=== PATIENT | male | born 1950 | race Caucasian/White ===

== ENCOUNTER 2018-06-05 19:34 | Observation (INO) ==
[2018-06-05] MEDS ORDERED: Diphtheria/Tetanus/Pertussis Vaccine Inj 0.5 ML Syringe IM ONE (19:50)
--- NOTE | 2018-06-05 19:50 | ED ---
HPI General Chief complaint: Syncope Stated complaint: Cardiac Time Seen by Provider: 06/05/18 19:39 Source: patient Mode of arrival: EMS Limitations: no limitations History of Present Illness HPI narrative: 68-year-old male with history of hypertension, diabetes, brought in by ambulance after a syncopal episode. The patient was at dinner, when the next thing he remembers he was on the floor with paramedics surrounding him. He did strike his head and has a superficial abrasion to the superior scalp. Paramedics noted the patient to be significantly bradycardic and hypotensive as well as diaphoretic at the scene. They administered 0.5 mg of atropine with significant improvement in the patient's heart rate, blood pressure, and mental status. On arrival to the emergency department patient states he feels significantly improved and denies any complaints. No head or neck pain. No chest pain or dyspnea. He states he was in his usual state of health throughout the day today. No fevers or recent illness. He lives primarily in [place], however has been down here since May 01. He has no local primary care physicians. He denies any history of cardiopulmonary disease. No history of DVT or PE. He reports having 1 alcoholic beverage this evening. Denies illicit drug use or tobacco use. Related Data Home Medications Medication Instructions Recorded Confirmed Chloresterol Med 1 tab PO DAILY 06/05/18 glimepiride 4 mg PO QAM 06/05/18 06/05/18 lisinopril 5 mg PO DAILY 06/05/18 06/05/18 metformin 500 mg PO BID 06/05/18 06/05/18 repaglinide 1 mg PO DAILY 06/05/18 06/05/18 Allergies Allergy/AdvReac Type Severity Reaction Status Date / Time No Known Allergies Allergy Verified 06/05/18 19:46 Review of Systems ROS: all other systems reviewed are negative [facility] Medical History Medical History Diabetes (Acute) HTN (hypertension) (Acute) Hyperlipidemia (Acute) Social History Social History Substance History: No History of Abuse Second Hand Smoke Exposure: No Smoking Status: Never smoker How Often Do You Have a Drink Containing Alcohol: Never Recent Travel in [facility] within the Last 8 Weeks: Yes Recent Out of Country Travel within the Last 8 Weeks: No Exam Narrative Exam Narrative: GENERAL: Well-developed, well-nourished, awake, alert, comfortable, no apparent distress. SKIN: Focused skin assessment warm/dry. Superficial abrasion to the superior scalp without visible contaminants, no active bleeding. HEAD: Skin exam as above. Normocephalic. EYES: Pupils equal and round. No scleral icterus. No injection or drainage. ENT: Mucous membranes pink and moist. NECK: Trachea midline. No JVD. No midline vertebral step-off or tenderness. CARDIOVASCULAR: Regular rate and rhythm. Distal pulses brisk and equal bilaterally. RESPIRATORY: No accessory muscle use. Clear to auscultation. Breath sounds equal bilaterally. GASTROINTESTINAL: Abdomen soft, non-tender, nondistended. MUSCULOSKELETAL: No obvious deformities. No clubbing. No cyanosis. No edema. NEUROLOGICAL: Awake and alert. No obvious cranial nerve deficits. Motor grossly within normal limits. Normal speech. No focal deficits. PSYCHIATRIC: Appropriate mood and affect; insight and judgment normal. Course Initial Documented Vital Signs Temperature 98.4 F 06/05/18 19:40 Pulse Rate 72 06/05/18 19:40 Respiratory Rate 18 06/05/18 19:40 Blood Pressure 113/58 L 06/05/18 19:40 Pulse Oximetry 98 06/05/18 19:40 Last Documented Vital Signs Temperature 98.4 F 06/05/18 19:40 Pulse Rate 77 06/05/18 22:02 Respiratory Rate 21 06/05/18 22:02 Blood Pressure 123/68 06/05/18 22:02 Pulse Oximetry 100 06/05/18 22:02 Medical Decision Making [facility] Narrative Medical decision making narrative: Vital signs reviewed. 8:35 PM: I was called to the patient's bedside by the patient's nurse because the patient's blood pressure is 88/50. On my assessment the patient is awake and alert and states he feels fine. His heart rate is in the 70s. Chest x-ray shows no acute cardiopulmonary disease. He will be given a liter of normal saline bolus. CT head shows cortical atrophy, right maxillary sinus fluid, no acute injuries. CT cervical spine CONCLUSION: 1. Scattered degenerative changes. 2. No fracture or canal stenosis. CBC is remarkable for thrombocytopenia with a platelet count of 63. CMP is remarkable for random glucose of 174, otherwise unremarkable. Alcohol level is 21. Cardiac enzymes are negative. CT pulmonary angiogram: CONCLUSION:1. No pulmonary embolus.2. Thickening of the mid and distal esophagus. Thiscan be directly inspected if clinically needed. The patient and the patient significant other who is present in the room were made aware of all findings. His blood pressure improved and he is now normotensive with a blood pressure 123/68 after a liter of normal saline IV. Patient was made aware of thickening of the mid and distal esophagus seen on CT scan with recommendation for upper endoscopy as this could be cancerous. This can be done as an outpatient. Patient does have a slightly prolonged QT interval with a syncopal episode. When paramedics arrived he was significantly bradycardic and hypotensive. His heart rate improved after he was given atropine in the field. Because of this history the patient will be admitted for overnight observation/telemetry monitoring for syncope. He is amenable to this plan. Case discussed with hospitalist Dr. Winkler who will admit the patient to the hospitalist service. Medical Screen Exam Complete: Yes Emergency Medical Condition: Yes Differential Diagnosis Differential Diagnosis: Syncope, dysrhythmia, metabolic abnormality, intracranial trauma, cervical spine injury, PE Lab Data Result diagrams: 06/05/18 19:45 06/05/18 19:45 Lab Results 06/05/18 06/05/18 06/05/18 Range/Units 19:45 19:45 19:45 WBC 6.3 (4.0-11.0) th/mm3 RBC 3.96 L (4.50-5.90) mil/mm3 Hgb 13.4 (13.0-17.0) gm/dL Hct 38.6 L (39.0-51.0) % MCV 97.4 (80.0-100.0) fL MCH 33.7 (27.0-34.0) pg MCHC 34.6 (32.0-36.0) % RDW 13.8 (11.6-17.2) % Plt Count 63 L (150-450) th/mm3 MPV 9.8 (7.0-11.0) fL Prelim Diff (Auto) Slide review pending Neut % (Auto) 49.5 (16.0-70.0) % Lymph % (Auto) 35.3 (9.0-44.0) % Baker % (Auto) 10.5 H (0.0-8.0) % Eos % (Auto) 3.8 (0.0-4.0) % Baso % (Auto) 0.9 (0.0-2.0) % Neut # (Auto) 3.1 (1.8-7.7) th/mm3 Lymph # (Auto) 2.2 (1.0-4.8) th/mm3 Baker # (Auto) 0.7 (0.0-0.9) th/mm3 Eos # (Auto) 0.2 (0.0-0.4) th/mm3 Baso # (Auto) 0.1 (0.0-0.2) th/mm3 WBC Differential . Diff Scan Auto diff confirmed Differential Comment . Platelet Estimate Low L (Normal) Platelet Morphology Normal (Normal) RBC Morphology Normal (Normal) PT 13.3 H (9.8-11.6) sec INR 1.3 Ratio APTT 25.5 (23.4-31.7) sec Sodium 139 (136-145) meq/L Potassium 4.2 (3.5-5.1) meq/L Chloride 104 (98-107) meq/L Carbon Dioxide 23.8 (21.0-32.0) meq/L Anion Gap 11 (5-15) meq/L BUN 11 (7-18) mg/dL Creatinine 0.84 (0.60-1.30) mg/dL Estimated GFR Greater than 89 (>89) mL/min Random Glucose 174 H (74-106) mg/dL Calcium 8.3 L (8.5-10.1) mg/dL Total Bilirubin 0.8 (0.2-1.0) mg/dL AST 53 H (15-37) U/L ALT 47 (12-78) U/L Alkaline Phosphatase 111 (45-117) U/L Troponin I Less than 0.02 L (0.02-0.05) ng/mL Total Protein 6.7 (6.4-8.2) g/dL Albumin 3.1 L (3.4-5.0) g/dL Serum Alcohol 21 H (0-5) mg/dL Imaging Data Radiologist's impression: Cervical Spine CT 06/05/18 19:46 CONCLUSION: 1. Scattered degenerative changes. 2. No fracture or canal stenosis. Chest X-Ray 06/05/18 19:46 CONCLUSION: No acute cardiopulmonary process. Head CT 06/05/18 19:46 CONCLUSION: 1. Cortical atrophy. 2. Fluid in the right maxillary sinus. . . Chest CTA 06/05/18 20:49 CONCLUSION: 1. No pulmonary embolus. 2. Thickening of the mid and distal esophagus. This can be directly inspected if clinically needed. ECG Data Attestation: I personally reviewed and interpreted this ECG as follows: Discharge Plan Discharge Disposition Patient Disposition: ED Admit(ED Internal Use Only) Discharge Condition Condition: Stable Discharge Details Diagnosis: Syncope, Hypotension, Thrombocytopenia, Esophageal thickening Physicians Team ED Provider: Duane Nelson Primary Care Provider: UNKNOWN, Rxs /Orders / Referrals /Forms Prescriptions: No Action metformin 500 mg Tablet 500 mg PO BID RF: 0 glimepiride 4 mg Tablet 4 mg PO QAM RF: 0 lisinopril 5 mg Tablet 5 mg PO DAILY RF: 0 repaglinide 1 mg Tablet 1 mg PO DAILY RF: 0 Chloresterol Med 1 tab PO DAILY RF: 0 Status ED Status: With Doctor
[2018-06-05] MEDS ORDERED: Sod Chloride 0.9% Inj 1,000 ML IV.CONT SCH (20:00)
[2018-06-05 20:13] LABS: Baso # (Auto) 0.1 th/mm3 (0.0-0.2); Baso % (Auto) 0.9 % (0.0-2.0); Eos # (Auto) 0.2 th/mm3 (0.0-0.4); Eos % (Auto) 3.8 % (0.0-4.0); Hematocrit 38.6 % (39.0-51.0); Hemoglobin 13.4 gm/dL (13.0-17.0); Lymph # (Auto) 2.2 th/mm3 (1.0-4.8); Lymph % (Auto) 35.3 % (9.0-44.0); Mean Corpuscular HGB Conc 34.6 % (32.0-36.0); Mean Corpuscular Hemoglobin 33.7 pg (27.0-34.0); Mean Corpuscular Volume 97.4 fL (80.0-100.0); Mean Platelet Volume 9.8 fL (7.0-11.0); Mono # (Auto) 0.7 th/mm3 (0.0-0.9); Mono % (Auto) 10.5 % (0.0-8.0); Neut # (Auto) 3.1 th/mm3 (1.8-7.7); Neut % (Auto) 49.5 % (16.0-70.0); Platelet Count 63 th/mm3 (150-450); Red Blood Count 3.96 mil/mm3 (4.50-5.90); Red Cell Distribution Width 13.8 % (11.6-17.2); White Blood Count 6.3 th/mm3 (4.0-11.0)
[2018-06-05 20:20] LABS: Activated Partial Thrombo Time 25.5 sec (23.4-31.7); INR 1.3 Ratio; Prothrombin Time 13.3 sec (9.8-11.6)
--- NOTE | 2018-06-05 20:21 | CT ---
EXAM DATE: 06/05/2018 8:17 PM EST AGE/SEX: 68 years / Male INDICATIONS: Dizzy fell off a chair hit head on right side. CLINICAL DATA: This is the patient's initial encounter. Patient reports that signs and symptoms have been present for 1 day and indicates a pain score of 4/10. MEDICAL/SURGICAL HISTORY: Hypertension. Diabetes. None. RADIATION DOSE: 35.33 CTDI (mGy) COMPARISON: No prior exams available for comparison. TECHNIQUE: CT of the head without contrast. Using automated exposure control and adjustment of the mA and/or kV according to patient size, radiation dose was kept as low as reasonably achievable to ob tain optimal diagnostic quality images. DICOM format image data is available electronically for revi ew and comparison. FINDINGS: Cerebrum: The ventricles are normal for age. Cortical atrophy. No evidence of midline shift, mass le ford, hemorrhage or acute infarction. No extraaxial fluid collections are seen. Posterior Fossa: The cerebellum and brainstem are intact. The 4th ventricle is midline. The cerebe llopontine angle is unremarkable. Extracranial: The visualized portion of the orbits is intact. Fluid in the right maxillary sinus. Skull: The calvaria is intact. No evidence of skull fracture. CONCLUSION: 1. Cortical atrophy. 2. Fluid in the right maxillary sinus. . . Electronically signed by: Don Son MD Board Certified Radiologist 06/05/2018 8:19 PM EST
--- NOTE | 2018-06-05 20:24 | XR ---
EXAM DATE: 06/05/2018 8:20 PM EST AGE/SEX: 68 years / Male INDICATIONS: Chest pain and patient states he felt like he passed out tonight. CLINICAL DATA: This is the patient's initial encounter. Patient reports that signs and symptoms have been present for 1 day and indicates a pain score of 5/10. MEDICAL/SURGICAL HISTORY: None. None. COMPARISON: No prior exams available for comparison. FINDINGS: A single AP view of the chest demonstrates the lungs to be symmetrically aerated without evidence of mass, infiltrate or effusion. The cardiomediastinal contours are unremarkable. Osseous structures a re intact. CONCLUSION: No acute cardiopulmonary process. Electronically signed by: Cesar Neal MD Board Certified Radiologist 06/05/2018 8:23 PM EST
--- NOTE | 2018-06-05 20:29 | CT ---
EXAM DATE: 06/05/2018 8:23 PM EST AGE/SEX: 68 years / Male INDICATIONS: Dizzy fell off a chair hit right side of head. CLINICAL DATA: This is the patient's initial encounter. Patient reports that signs and symptoms have been present for 1 day and indicates a pain score of 4/10. MEDICAL/SURGICAL HISTORY: Hypertension. Diabetes. None. RADIATION DOSE: 20.35 CTDI (mGy) COMPARISON: No prior exams available for comparison. TECHNIQUE: Contiguous axial images were obtained using helical multirow detector technique. The vol umetric data was post-processed with multiplanar reconstruction in oblique axial, sagittal, and coron al planes. Using automated exposure control and adjustment of the mA and/or kV according to patient s ize, radiation dose was kept as low as reasonably achievable to obtain optimal diagnostic quality mich ges. DICOM format image data is available electronically for review and comparison. FINDINGS: Vertebrae: Normal vertebral body height. Scattered degenerative changes. Alignment: Normal. No subluxation. C2-3: The bony spinal canal is normal in size. No evidence of disc bulge or herniation. The neural foramina are bilaterally patent. C3-4: The bony spinal canal is normal in size. No evidence of disc bulge or herniation. The neural foramina are bilaterally patent. C4-5: The bony spinal canal is normal in size. No evidence of disc bulge or herniation. The neural foramina are bilaterally patent. C5-6: The bony spinal canal is normal in size. No evidence of disc bulge or herniation. The neural foramina are bilaterally patent. C6-7: The bony spinal canal is normal in size. No evidence of disc bulge or herniation. The neural foramina are bilaterally patent. C7-T1: The bony spinal canal is normal in size. No evidence of disc bulge or herniation. The neura l foramina are bilaterally patent. CONCLUSION: 1. Scattered degenerative changes. 2. No fracture or canal stenosis. Electronically signed by: Don Son MD Board Certified Radiologist 06/05/2018 8:28 PM EST
[2018-06-05 20:37] LABS: Albumin 3.1 g/dL (3.4-5.0); Anion Gap 11 meq/L (5-15); Aspartate Aminotransferase 53 U/L (15-37); Blood Urea Nitrogen 11 mg/dL (7-18); Calcium 8.3 mg/dL (8.5-10.1); Carbon Dioxide 23.8 meq/L (21.0-32.0); Chloride 104 meq/L (98-107); Glomerular Filtration Rate Greater Than 89 mL/min (>89); Glucose,Random 174 mg/dL (74-106); Potassium 4.2 meq/L (3.5-5.1); Sodium 139 meq/L (136-145)
[2018-06-05 20:42] LABS: Alanine Aminotransferase 47 U/L (12-78); Alkaline Phosphatase 111 U/L (45-117); Total Protein 6.7 g/dL (6.4-8.2)
[2018-06-05 20:44] LABS: Alcohol 21 mg/dL (0-5)
[2018-06-05 20:45] LABS: Platelet Morphology Normal (Normal); RBC Morphology Normal (Normal)
[2018-06-05] MEDS ORDERED: Sod Chloride 0.9% Inj 1,000 ML IV.SIG SCH (20:45)
--- NOTE | 2018-06-05 21:49 | CT ---
EXAM DATE: 06/05/2018 9:41 PM EST AGE/SEX: 68 years / Male INDICATIONS: Syncope. CLINICAL DATA: This is the patient's initial encounter. Patient reports that signs and symptoms have been present for 1 day and indicates a pain score of 0/10. MEDICAL/SURGICAL HISTORY: Hypertension. Diabetes. None. RADIATION DOSE: 10.03 CTDI (mGy) COMPARISON: No prior exams available for comparison. TECHNIQUE: Volumetric scanning was performed using a multi-row detector CT scanner during bolus infu ford of 75 ml Omnipaque 350 (iohexol) nonionic water-soluble contrast as a single exam dose. The jemal a was post processed with a variety of visualization algorithms including full volume maximum intensi ty projection and sliding thin slab reformation. Using automated exposure control and adjustment of t he mA and/or kV according to patient size, radiation dose was kept as low as reasonably achievable to obtain optimal diagnostic quality images. DICOM format image data is available electronically for r eview and comparison. FINDINGS: Pulmonary Arteries: No filling defects are seen in the pulmonary arteries out to the subsegmental ve ssels. The left and right pulmonary arteries are normal in diameter. Lung: No infiltrates seen. Effusion: None. Mediastinum: No evidence of mediastinal or hilar adenopathy. Coronary artery calcifications are pres ent. Other: The axilla is unremarkable. The pelvis. Thickening of the mid and distal esophagus. There is a mild hiatal hernia. CONCLUSION: 1. No pulmonary embolus. 2. Thickening of the mid and distal esophagus. This can be directly inspected if clinically needed. Electronically signed by: Cesar Neal MD Board Certified Radiologist 06/05/2018 9:47 PM EST
[2018-06-06] MEDS ORDERED: Dextrose 50% in Water 50 ML Vial IV.PUSH PRN (00:50)
--- NOTE | 2018-06-06 00:57 | P.HPIM ---
History of Present Illness Primary Care Physician: UNKNOWN 68-year-old male with a past medical history significant for hypertension, hyperlipidemia and diabetes mellitus presents to the emergency department for the evaluation of a syncopal episode. The patient reports he was sitting eating dinner when he suddenly passed out. He endorses some preceding nausea but denies any dizziness/lightheadedness. No chest pain or shortness of breath associated with the episode. The patient has never had a previous episode that was similar and denies any recent sick contacts. No fever/chills. No abdominal pain. No focal neurologic deficits. Review of Systems Review of Systems: all other systems reviewed are negative [facility] Medical History Medical History Diabetes (Acute) HTN (hypertension) (Acute) Hyperlipidemia (Acute) Surgical History Surgical History History of splenectomy (Acute) Family History Family History Other Family history normal Social History Social History Substance History: No History of Abuse Second Hand Smoke Exposure: No Smoking Status: Never smoker How Often Do You Have a Drink Containing Alcohol: Never Recent Travel in [facility] within the Last 8 Weeks: Yes Recent Out of Country Travel within the Last 8 Weeks: No Immunization History Tetanus Immunization: Unsure Medications and Allergies Allergies Allergy/AdvReac Type Severity Reaction Status Date / Time No Known Allergies Allergy Verified 06/05/18 19:46 Home Medications Medication Instructions Recorded Confirmed Type Chloresterol Med 1 tab PO DAILY 06/05/18 History glimepiride 4 mg PO QAM 06/05/18 06/05/18 History lisinopril 5 mg PO DAILY 06/05/18 06/05/18 History metformin 500 mg PO BID 06/05/18 06/05/18 History repaglinide 1 mg PO DAILY 06/05/18 06/05/18 History Active Medications: Active Medications Dextrose (D50w Vial) 50 ml IV.PUSH UNSCH PRN PRN Reason: PER HYPOGLYCEMIA PROTOCOL Glucagon (Glucagon Inj) 1 mg OTHER PRN PRN PRN Reason: for Hypoglycemia Protocol Sodium Chloride (Ns Inj) 1,000 mls @ 125 mls/hr IV.CONT .Q8H CAITLIN Stop: 06/06/18 03:59 Last Admin: 06/05/18 20:31 Dose: 125 mls/hr Sodium Chloride (Ns Inj) 1,000 mls @ 100 mls/hr IV.CONT .Q10H CAITLIN Insulin Aspart (Novolog Insulin Correctional Sugar Inj) 0 unit SQ ACHS AND 3AM CAITLIN; Protocol Physical Exam Vital signs: Vital Signs 06/05/18 19:40 06/05/18 19:59 06/05/18 20:29 Temperature 98.4 F Pulse Rate 72 72 77 Respiratory Rate 18 18 Blood Pressure 113/58 L 88/50 L Pulse Oximetry 98 98 97 06/05/18 21:17 06/05/18 22:02 06/05/18 23:12 Temperature Pulse Rate 71 77 70 Respiratory Rate 17 21 16 Blood Pressure 96/59 L 123/68 129/69 Pulse Oximetry 100 100 96 Intake & Output 06/05/18 06/05/18 06/06/18 06:59 18:59 06:59 Intake Total 1000 / 1000 Balance 1000 / 1000 Weight 79.379 kg Intake: IV 1000 / 1000 NS Inj 1,000 ML @ 1000 mls/hr 1000 / 1000 IV.SIG BOLUS CAITLIN Rx#:[id number] Narrative: Gen.: No acute distress Head: Normocephalic. Atraumatic. EENT: Pupils equal round and reactive to light. Nose without drainage. Airway intact. Throat without injection. Cardiovascular: Regular rate and rhythm. No murmurs, rubs or gallops. Respiratory: Lungs clear to auscultation bilaterally. No wheezes or rhonchi. Abdomen: Soft, nontender, nondistended. No peritoneal signs. Musculoskeletal: No gross deformities. No edema. Skin: No obvious rashes or erythema. Neuro: Sensory and motor grossly intact. Cranial nerves II through XII grossly intact. Results Labs CBC & Chem 7: 06/05/18 19:45 06/05/18 19:45 Imaging Impressions Cervical Spine CT 06/05/18 19:46 CONCLUSION: 1. Scattered degenerative changes. 2. No fracture or canal stenosis. Chest X-Ray 06/05/18 19:46 CONCLUSION: No acute cardiopulmonary process. Head CT 06/05/18 19:46 CONCLUSION: 1. Cortical atrophy. 2. Fluid in the right maxillary sinus. . . Chest CTA 06/05/18 20:49 CONCLUSION: 1. No pulmonary embolus. 2. Thickening of the mid and distal esophagus. This can be directly inspected if clinically needed. Caprini VTE Risk Assessment Caprini VTE Risk Assessment: Moderate/High Risk (score >= 2) Caprini Risk Assessment Model: Point Value = 1 Point Value = 2 Point Value = 3 Point Value = 5 Age 41-60 Minor surgery BMI > 25 kg/m2 Swollen legs Varicose veins or History of unexplained or recurrent spontaneous Oral contraceptives or hormone replacement Sepsis (< 1 month) Serious lung disease, including pneumonia (< 1 month) Abnormal pulmonary function Acute myocardial infarction Congestive heart failure (< 1 month) History of inflammatory bowel disease Medical patient at bed rest Age 61-74 Arthroscopic surgery Major open surgery (> 45 min) Laparoscopic surgery (> 45 min) Malignancy Confined to bed (> 72 hours) Immobilizing plaster cast Central venous access Age >= 75 History of VTE Family history of VTE Factor V Leiden Prothrombin [id number] Lupus anticoagulant Anticardiolipin antibodies Elevated serum homocysteine Heparin-induced thrombocytopenia Other congenital or acquired thrombophilia Stroke (< 1 month) Elective arthroplasty Hip, pelvis, or leg fracture Acute spinal cord injury (< 1 month) Prophylaxis Regimen: Total Risk Factor Score Risk Level Prophylaxis Regimen 0-1 Low Early ambulation 2 Moderate Order ONE of the following: *Sequential Compression Device (SCD) *Heparin 5000 units SQ BID 3-4 Higher Order ONE of the following medications: *Heparin 5000 units SQ TID *Enoxaparin/Lovenox 40 mg SQ daily (WT < 150 kg, CrCl > 30 mL/min) *Enoxaparin/Lovenox 30 mg SQ daily (WT < 150 kg, CrCl > 10-29 mL/min) *Enoxaparin/Lovenox 30 mg SQ BID (WT < 150 kg, CrCl > 30 mL/min) AND/OR *Sequential Compression Device (SCD) 5 or more Highest Order ONE of the following medications: *Heparin 5000 units SQ TID (Preferred with Epidurals) *Enoxaparin/Lovenox 40 mg SQ daily (WT < 150 kg, CrCl > 30 mL/min) *Enoxaparin/Lovenox 30 mg SQ daily (WT < 150 kg, CrCl > 10-29 mL/min) *Enoxaparin/Lovenox 30 mg SQ BID (WT < 150 kg, CrCl > 30 mL/min) AND *Sequential Compression Device (SCD) Assessment and Plan Plan Assessment/plan: 1. Syncope EKG significant for a QTC of 466 Serial troponins Echo pending Carotid ultrasound pending Cardiology consulted, appreciate assistance 2. Diabetes mellitus Holding home oral anti-hyperglycemics Sliding-scale insulin Monitor blood glucose 3. Hypertension/hyperlipidemia Resume home medications once workup complete FEN N.p.o. Electrolytes: Magnesium level pending, monitor and replete as needed NS at 100 cc/hour Heparin
[2018-06-06] MEDS: Sod Chloride 0.9% Inj 1,000 ML IV.CONT SCH ×4 (00:59→22:23)
[2018-06-06 01:56] LABS: Bilirubin,Urine Negative (Negative); Clarity,Urine Clear (Clear); Color,Urine Yellow (Yellw/Straw); Glucose,Urine (UA) 50 mg/dL (Negative); Leukocyte Esterase,Urine Negative (Negative); Nitrite,Urine Negative (Negative); Specific Gravity,Urine 1.039 (1.002-1.035)
[2018-06-06 01:59] LABS: Amphetamine Screen,Urine Neg (Neg); Barbiturate Screen,Urine Neg (Neg); Cannabinoid Screen,Urine Pos (Neg); Cocaine Screen,Urine Neg (Neg)
[2018-06-06 02:09] LABS: Opiate Screen,Urine Neg (Neg)
[2018-06-06 02:17] LABS: Anion Gap 6 meq/L (5-15); Blood Urea Nitrogen 10 mg/dL (7-18); Calcium 7.5 mg/dL (8.5-10.1); Carbon Dioxide 26.6 meq/L (21.0-32.0); Chloride 107 meq/L (98-107); Glomerular Filtration Rate Greater Than 89 mL/min (>89); Glucose,Random 166 mg/dL (74-106); Sodium 140 meq/L (136-145)
[2018-06-06] MEDS: Insulin NovoLOG Aspart Correctional Sugar Inj SQ SCH ×5 (02:56→22:23)
[2018-06-06 07:31] VITALS: RESP 16
--- NOTE | 2018-06-06 08:02 | P.PNIM ---
Subjective Interval history: Follow-up for syncope. Patient reports feeling much better today. Denies any lightheadedness or dizziness. He has ambulated without difficulty. He denies any chest pain, palpitations, shortness of breath. Denies any abdominal complaints. He explains that yesterday he did not drink much water, then admits to some alcohol intake and marijuana use. He states this has never happened before. Discussed recommendations for event monitor as outpatient, patient verbalizes understanding, he plans to return home in 1 week. Also discussed findings of mid to distal esophagus thickening on CT. Patient denies any abdominal pain, nausea, or vomiting. Recommend outpatient follow-up with GI, patient verbalized understanding. Physical Exam Vital signs: Vital Signs 06/05/18 19:40 06/05/18 19:59 06/05/18 20:29 Temperature 98.4 F Pulse Rate 72 72 77 Respiratory Rate 18 18 Blood Pressure 113/58 L 88/50 L Pulse Oximetry 98 98 97 06/05/18 21:17 06/05/18 22:02 06/05/18 23:12 Temperature Pulse Rate 71 77 70 Respiratory Rate 17 21 16 Blood Pressure 96/59 L 123/68 129/69 Pulse Oximetry 100 100 96 06/06/18 00:59 06/06/18 03:30 06/06/18 04:00 Temperature 97.9 F Pulse Rate 77 59 L 62 Respiratory Rate 17 Blood Pressure 110/65 Pulse Oximetry 98 06/06/18 07:26 Temperature 97.9 F Pulse Rate 54 L Respiratory Rate 16 Blood Pressure 117/65 Pulse Oximetry 96 Intake & Output 06/05/18 06/06/18 06/06/18 18:59 06:59 18:59 Intake Total 1999 Balance 1999 Weight 79.379 kg Intake: IV 1999 NS Inj 1,000 ML @ 125 mls/hr IV 1000 / 1000 .CONT .Q8H CAITLIN Rx#:[id number] NS Inj 1,000 ML @ 1000 mls/hr 1000 / 1000 IV.SIG BOLUS CAITLIN Rx#:[id number] Other: # Voids 1 Date of Last Bowel Movement 06/05/18 Narrative: GENERAL: Well-nourished, well-developed pleasant middle-age male patient in NAD. SKIN: Warm and dry. No rash. HEENT: Pupils equal and round. Mucous membranes pink and moist. NECK: Supple. Trachea midline. CARDIOVASCULAR: Regular rate and rhythm. No murmur appreciated. RESPIRATORY: No accessory muscle use. Clear to auscultation. Breath sounds equal bilaterally. GASTROINTESTINAL: Abdomen soft, non-tender, nondistended. Normoactive bowel sounds x4. MUSCULOSKELETAL: No obvious deformities. Extremities without clubbing, cyanosis , or edema. NEUROLOGICAL: Awake and alert. No obvious cranial nerve deficits. Moving all extremities spontaneously. Normal speech. PSYCHIATRIC: Appropriate mood and affect; insight and judgment normal. Results Labs CBC & Chem 7: 06/05/18 19:45 06/06/18 01:30 Imaging Imaging: Impressions Cervical Spine CT 06/05/18 19:46 CONCLUSION: 1. Scattered degenerative changes. 2. No fracture or canal stenosis. Chest X-Ray 06/05/18 19:46 CONCLUSION: No acute cardiopulmonary process. Head CT 06/05/18 19:46 CONCLUSION: 1. Cortical atrophy. 2. Fluid in the right maxillary sinus. . . Chest CTA 06/05/18 20:49 CONCLUSION: 1. No pulmonary embolus. 2. Thickening of the mid and distal esophagus. This can be directly inspected if clinically needed. Assessment and Plan Plan 68-year-old male with PMH of DM and HTN presents after a syncopal episode. Syncope: The patient was sitting down eating dinner yesterday, went to stand up then felt lightheaded and "hot" and then passed out. BP 88/50 upon arrival. + alcohol and marijuana use prior to event. -C-spine and head CT reviewed and negative -CXR reviewed and negative -Chest CTA negative for PE -EKG shows sinus rhythm, no AV blocks, slight QT prolongation: 462 -Monitor on telemetry, occasional episodes of mild sinus bradycardia HR 55, otherwise unremarkable -Cardiology consulted, likely orthostatic hypotension/vasovagal due to hypotension and dehydration -Echocardiogram ordered, patient will be discharged if negative -Patient back to baseline, symptoms resolved -Recommended outpatient f/up with cardiology for event monitor Esophageal thickening: Incidental finding on chest CTA , shows thickening of mid and distal esophagus -Patient made aware, reports no GI symptoms -Follow up as outpatient with GI Diabetes Mellitus 2, Chronic: -Holding home oral anti-hyperglycemics -Monitor Accu-checks and cover with SSI Hypertension, Chronic: -Holding patients lisinopril due to hypotension -Monitor BP, restart anti-hypertensives as needed -BP now 131/71, will decrease lisinopril dosing to 2.5mg daily for renal protection with hx of diabetes DVT Prophylaxis: Heparin sq Discharge Planning: Discharge patient to home Condition on discharge: Stable Heart Healthy/Diabetic Diet as tolerated Ad [place]anza activity Rx written: decrease lisinopril to 2.5mg daily Follow-up with primary care physician, cardiology, and gastroenterology Attending Attestation patient was seen and examined. no chest pain or dizziness today. denies any dysphagia or odynophagia. awaiting echo. cardiology consult appreciated. patient will be discharged home if echo negative. he will have a f/u with GI/Hematology as outpatient and this was d/w the patient. Progress Note: Quality VTE Deep Vein Thrombosis/Pulmonary Embolism Present on Admission: No
--- NOTE | 2018-06-06 08:52 | P.CONCA ---
History of Present Illness Primary Care Provider: UNKNOWN History of Present Illness: 68-year-old male with DM, HTN who presented after syncopal episode. The patient was sitting down eating dinner yesterday. He went to stand up, felt lightheaded, and passed out briefly. His girlfriend witnessed the event. No postictal confusion or generalized tremor noted. No tongue biting or incontinence. He denies any symptoms of chest pain, shortness breath, palpitations. He has never had any syncopal episodes before. He does feel like yesterday he may have been more dehydrated than normal. He does admit to some alcohol and marijuana prior to the episode yesterday. EKG and telemetry shows sinus rhythm, no significant AV block, QTC slightly prolonged at 462. Labs remarkable for elevated specific gravity in the urine, anemia/ thrombocytopenia, borderline elevated INR with slightly elevated AST. BP 88/50 on admission, improved with IVF. Review of Systems All other systems reviewed negative except as stated in HPI [facility] - History History Provided By: Patient - Medical History Medical History: Medical History (Last Reviewed 06/06/18 @ 00:52 by Lavern Winkler MD) Diabetes HTN (hypertension) Hyperlipidemia - Surgical History Surgical History: Surgical History (Last Updated 06/06/18 @ 00:52 by Lavern Winkler MD) History of splenectomy - Family History Family History: Family History Other Family history normal - Tobacco History Second Hand Smoke Exposure: No Smoking Status: Never smoker - Alcohol History How Often Do You Have a Drink Containing Alcohol: 2 to 3 times a week - Substance Use History Substance History: Active Abuse (Daily marijuana) - Travel History Recent Travel in the [facility] Within the Last 8 Weeks: No Recent Travel Out of the Country Within the Last 8 Weeks: No - Immunization History Tetanus Immunization: Unsure Medications and Allergies Active Medications: Active Medications Dextrose (D50w Vial) 50 ml IV.PUSH UNSCH PRN PRN Reason: PER HYPOGLYCEMIA PROTOCOL Glucagon (Glucagon Inj) 1 mg OTHER PRN PRN PRN Reason: for Hypoglycemia Protocol Heparin Sodium (Porcine) (Heparin Inj) 5,000 units SQ Q12HR CAITLIN Sodium Chloride (Ns Inj) 1,000 mls @ 100 mls/hr IV.CONT .Q10H CAITLIN Last Admin: 06/06/18 00:59 Dose: Not Given Magnesium Sulfate/Dextrose (Magnesium Sulfate 1 Gm/D5w 100 Ml Premix) 100 mls @ 100 mls/hr IV.SIG Q1H CAITLIN Stop: 06/06/18 10:14 Insulin Aspart (Novolog Insulin Correctional Sugar Inj) 0 unit SQ ACHS AND 3AM CAITLIN; Protocol Last Admin: 06/06/18 02:56 Dose: Not Given Allergies Allergy/AdvReac Type Severity Reaction Status Date / Time No Known Allergies Allergy Verified 06/05/18 19:46 Home Medications Medication Instructions Recorded Confirmed Type Chloresterol Med 1 tab PO DAILY 06/05/18 History glimepiride 4 mg PO QAM 06/05/18 06/05/18 History lisinopril 5 mg PO DAILY 06/05/18 06/05/18 History metformin 500 mg PO BID 06/05/18 06/05/18 History repaglinide 1 mg PO DAILY 06/05/18 06/05/18 History Exam Vital signs: Vital Signs 06/05/18 19:40 06/05/18 19:59 06/05/18 20:29 Temperature 98.4 F Pulse Rate 72 72 77 Respiratory Rate 18 18 Blood Pressure 113/58 L 88/50 L Pulse Oximetry 98 98 97 06/05/18 21:17 06/05/18 22:02 06/05/18 23:12 Temperature Pulse Rate 71 77 70 Respiratory Rate 17 21 16 Blood Pressure 96/59 L 123/68 129/69 Pulse Oximetry 100 100 96 06/06/18 00:59 06/06/18 03:30 06/06/18 04:00 Temperature 97.9 F Pulse Rate 77 59 L 62 Respiratory Rate 17 Blood Pressure 110/65 Pulse Oximetry 98 06/06/18 07:26 Temperature 97.9 F Pulse Rate 54 L Respiratory Rate 16 Blood Pressure 117/65 Pulse Oximetry 96 Intake & Output 06/05/18 06/06/18 06/06/18 18:59 06:59 18:59 Intake Total 1999 Balance 1999 Weight 175 lb Intake: IV 1999 NS Inj 1,000 ML @ 125 mls/hr IV 1000 / 1000 .CONT .Q8H CAITLIN Rx#:[id number] NS Inj 1,000 ML @ 1000 mls/hr 1000 / 1000 IV.SIG BOLUS CAITLIN Rx#:[id number] Other: # Voids 1 Date of Last Bowel Movement 06/05/18 Narrative: GENERAL: Well-developed well-nourished. In no acute distress. NECK: No carotid bruits. No JVD. CARDIOVASCULAR: Regular rate and rhythm. No murmur appreciated. RESPIRATORY: No accessory muscle use. Clear to auscultation. Breath sounds equal bilaterally. MUSCULOSKELETAL: No clubbing or cyanosis. No edema. NEUROLOGICAL: Awake and alert. Normal speech. Results 06/05/18 19:45 06/06/18 01:30 Cardiac Enzymes 06/05/18 06/06/18 Range/Units 19:45 01:30 AST 53 H (15-37) U/L Troponin I Less than 0.02 L Less than 0.02 L (0.02-0.05) ng/mL Coagulation 06/05/18 Range/Units 19:45 PT 13.3 H (9.8-11.6) sec APTT 25.5 (23.4-31.7) sec CBC 06/05/18 Range/Units 19:45 WBC 6.3 (4.0-11.0) th/mm3 RBC 3.96 L (4.50-5.90) mil/mm3 Hgb 13.4 (13.0-17.0) gm/dL Hct 38.6 L (39.0-51.0) % Plt Count 63 L (150-450) th/mm3 Neut # (Auto) 3.1 (1.8-7.7) th/mm3 Lymph # (Auto) 2.2 (1.0-4.8) th/mm3 [place] # (Auto) 0.7 (0.0-0.9) th/mm3 Eos # (Auto) 0.2 (0.0-0.4) th/mm3 Baso # (Auto) 0.1 (0.0-0.2) th/mm3 Comprehensive Metabolic Panel 06/05/18 06/06/18 Range/Units 19:45 01:30 Sodium 139 140 (136-145) meq/L Potassium 4.2 4.0 (3.5-5.1) meq/L Chloride 104 107 (98-107) meq/L Carbon Dioxide 23.8 26.6 (21.0-32.0) meq/L BUN 11 10 (7-18) mg/dL Creatinine 0.84 0.72 (0.60-1.30) mg/dL Calcium 8.3 L 7.5 L D (8.5-10.1) mg/dL AST 53 H (15-37) U/L ALT 47 (12-78) U/L Alkaline Phosphatase 111 (45-117) U/L Total Protein 6.7 (6.4-8.2) g/dL Albumin 3.1 L (3.4-5.0) g/dL Intake and Output 06/05/18 06/06/18 06/06/18 22:59 06:59 14:59 Intake Total 1000 / 1000 1000 / 1000 Balance 1000 / 1000 1000 / 1000 Intake: IV 1000 / 1000 1000 / 1000 NS Inj 1,000 ML @ 125 mls/hr IV 1000 / 1000 .CONT .Q8H CAITLIN Rx#:[id number] NS Inj 1,000 ML @ 1000 mls/hr 1000 / 1000 IV.SIG BOLUS CAITLIN Rx#:[id number] Other: # Voids 1 Date of Last Bowel Movement 06/05/18 Weight 175 lb - Imaging and Cardiology Imaging: Impressions Cervical Spine CT 06/05/18 19:46 CONCLUSION: 1. Scattered degenerative changes. 2. No fracture or canal stenosis. Chest X-Ray 06/05/18 19:46 CONCLUSION: No acute cardiopulmonary process. Head CT 06/05/18 19:46 CONCLUSION: 1. Cortical atrophy. 2. Fluid in the right maxillary sinus. . . Chest CTA 06/05/18 20:49 CONCLUSION: 1. No pulmonary embolus. 2. Thickening of the mid and distal esophagus. This can be directly inspected if clinically needed. Assessment and Plan - Plan 68-year-old male with DM, HTN who presented after syncopal episode Syncope: Symptoms and workup consistent with orthostatic hypotension/vasovagal syncope probably due to dehydration. Check echocardiogram to rule out any significant structural heart disease. Could consider outpatient 24-hour Holter monitor. May also consider hematology/GI evaluation for lab abnormalities as above. Nothing further to add from a cardiovascular perspective at this time. We will sign off. Please call with questions. Discussed Condition With: Patient, Dr. Lomeli
[2018-06-06] MEDS: Heparin - SQ 10,000 UNITS/ML Vial SQ SCH ×2 (09:25→21:00)
--- NOTE | 2018-06-06 09:27 | US ---
EXAM DATE: 06/06/2018 9:19 AM EST AGE/SEX: 68 years / Male INDICATIONS: Syncope. CLINICAL DATA: This is the patient's initial encounter. Patient reports that signs and symptoms have been present for 2 days and indicates a pain score of 0/10. MEDICAL/SURGICAL HISTORY: Diabetes. Hypertension. Hyperlipidemia. Splenectomy. COMPARISON: No prior exams available for comparison. VELOCITY PARAMETERS: ICA/CCA Ratio: Right 1.0 , Left 1.0 ICA: Right 85 cm/sec, Left 104 cm/sec CCA: Right 87 cm/sec, Left 108 cm/sec ECA: Right 144 cm/sec, Left 166 cm/sec Vertebral: Right 59 cm/sec antegrade, Left 59 cm/sec antegrade FINDINGS: RIGHT CAROTID: There is no evidence for a hemodynamically significant carotid stenosis. Minimal int imal hyperplasia is present with scattered calcific plaque. LEFT CAROTID: There is no evidence for a hemodynamically significant carotid stenosis. Minimal inti mal hyperplasia is present with scattered calcific plaque. Flow is antegrade in both vertebral arteries. There are no ancillary masses or adenopathy. CONCLUSION: Negative examination for a hemodynamically significant carotid stenosis. Joshua Appiah MD FACR Electronically signed by: Joshua Appiah MD Board Certified Radiologist 06/06/2018 9:26 AM EST
[2018-06-06] MEDS: Mag Sulf 1 gm/100 ml Premix 100 ML IV.SIG SCH ×2 (09:28→10:51)
--- NOTE | 2018-06-06 09:42 | P.PNIM ---
Subjective Interval history: 68-year-old male with PMH of DM and HTN presents after a syncopal episode. The patient was sitting down eating dinner yesterday, went to stand up then felt lightheaded and "hot" and then passed out. He did hit his head and has some scratches on his scalp, his girlfriend witnessed the event. Reports no postictal confusion or generalized tremor. No tongue biting or incontinence. He denies any symptoms of chest pain, shortness breath, palpitations. He has never had any syncopal episodes before. He does feel like yesterday he may have been dehydrated but denies any recent vomiting, diarrhea or medication changes. Says he feels fine this morning, has not felt light headed. Physical Exam Vital signs: Vital Signs 06/05/18 19:40 06/05/18 19:59 06/05/18 20:29 Temperature 98.4 F Pulse Rate 72 72 77 Respiratory Rate 18 18 Blood Pressure 113/58 L 88/50 L Pulse Oximetry 98 98 97 06/05/18 21:17 06/05/18 22:02 06/05/18 23:12 Temperature Pulse Rate 71 77 70 Respiratory Rate 17 21 16 Blood Pressure 96/59 L 123/68 129/69 Pulse Oximetry 100 100 96 06/06/18 00:59 06/06/18 03:30 06/06/18 04:00 Temperature 97.9 F Pulse Rate 77 59 L 62 Respiratory Rate 17 Blood Pressure 110/65 Pulse Oximetry 98 06/06/18 07:26 Temperature 97.9 F Pulse Rate 54 L Respiratory Rate 16 Blood Pressure 117/65 Pulse Oximetry 96 Intake & Output 06/05/18 06/06/18 06/06/18 18:59 06:59 18:59 Intake Total 1999 Balance 1999 Weight 79.379 kg Intake: IV 1999 NS Inj 1,000 ML @ 125 mls/hr IV 1000 / 1000 .CONT .Q8H CAITLIN Rx#:[id number] NS Inj 1,000 ML @ 1000 mls/hr 1000 / 1000 IV.SIG BOLUS CAITLIN Rx#:[id number] Other: # Voids 1 Date of Last Bowel Movement 06/05/18 Narrative: Narrative: GENERAL: Well-nourished, well-developed male patient in NAD. SKIN: Warm and dry. No visible rash. HEENT: Normocephalic. Atraumatic. Pupils equal and round. CARDIOVASCULAR: Regular rate and rhythm. No murmur appreciated. RESPIRATORY: No accessory muscle use. Clear to auscultation. Breath sounds equal bilaterally. GASTROINTESTINAL: Abdomen soft, non-tender, nondistended. Normoactive bowel sounds x4. MUSCULOSKELETAL: No obvious deformities. No clubbing, cyanosis, or edema in the extremities. NEUROLOGICAL: Awake and alert. Motor grossly within normal limits. Moving all extremities spontaneously. Normal speech. PSYCHIATRIC: Appropriate mood and affect; insight and judgment normal. Results - Labs CBC & Chem 7: 06/05/18 19:45 06/06/18 01:30 Laboratory Results - last 24 hr 06/05/18 06/05/18 06/05/18 19:45 19:45 19:45 WBC 6.3 RBC 3.96 L Hgb 13.4 Hct 38.6 L MCV 97.4 MCH 33.7 MCHC 34.6 RDW 13.8 Plt Count 63 L MPV 9.8 Prelim Diff (Auto) Slide review pending Neut % (Auto) 49.5 Lymph % (Auto) 35.3 [place] % (Auto) 10.5 H Eos % (Auto) 3.8 Baso % (Auto) 0.9 Neut # (Auto) 3.1 Lymph # (Auto) 2.2 [place] # (Auto) 0.7 Eos # (Auto) 0.2 Baso # (Auto) 0.1 WBC Differential . Diff Scan Auto diff confirmed Differential Comment . Platelet Estimate Low L Platelet Morphology Normal RBC Morphology Normal PT 13.3 H INR 1.3 APTT 25.5 Sodium 139 Potassium 4.2 Chloride 104 Carbon Dioxide 23.8 Anion Gap 11 BUN 11 Creatinine 0.84 Estimated GFR Greater than 89 POC Glucose Random Glucose 174 H Calcium 8.3 L Magnesium Total Bilirubin 0.8 AST 53 H ALT 47 Alkaline Phosphatase 111 Troponin I Less than 0.02 L Total Protein 6.7 Albumin 3.1 L Urine Color Urine Clarity Urine pH Ur Specific [place] Urine Protein Urine Glucose (UA) Urine Ketones Urine Occult Blood Urine Nitrate Urine Bilirubin Urine Urobilinogen Ur Leukocyte Esterase Urine WBC Micro UA Comment Ur Microscopic Review Urine Culture Comments Urine Opiates Screen Ur Barbiturates Screen Ur Amphetamines Screen U Benzodiazepines Scrn Urine Cocaine Screen U Cannabinoids Screen Serum Alcohol 21 H 06/05/18 06/06/18 06/06/18 19:45 01:30 01:30 WBC RBC Hgb Hct MCV MCH MCHC RDW Plt Count MPV Prelim Diff (Auto) Neut % (Auto) Lymph % (Auto) [place] % (Auto) Eos % (Auto) Baso % (Auto) Neut # (Auto) Lymph # (Auto) [place] # (Auto) Eos # (Auto) Baso # (Auto) WBC Differential Diff Scan Differential Comment Platelet Estimate Platelet Morphology RBC Morphology PT INR APTT Sodium 140 Potassium 4.0 Chloride 107 Carbon Dioxide 26.6 Anion Gap 6 BUN 10 Creatinine 0.72 Estimated GFR Greater than 89 POC Glucose Random Glucose 166 H Calcium 7.5 L D Magnesium 1.4 L Total Bilirubin AST ALT Alkaline Phosphatase Troponin I Less than 0.02 L Total Protein Albumin Urine Color Urine Clarity Urine pH Ur Specific [place] Urine Protein Urine Glucose (UA) Urine Ketones Urine Occult Blood Urine Nitrate Urine Bilirubin Urine Urobilinogen Ur Leukocyte Esterase Urine WBC Micro UA Comment Ur Microscopic Review Urine Culture Comments Urine Opiates Screen Neg Ur Barbiturates Screen Neg Ur Amphetamines Screen Neg U Benzodiazepines Scrn Neg Urine Cocaine Screen Neg U Cannabinoids Screen Pos H Serum Alcohol 06/06/18 06/06/18 01:30 02:54 WBC RBC Hgb Hct MCV MCH MCHC RDW Plt Count MPV Prelim Diff (Auto) Neut % (Auto) Lymph % (Auto) [place] % (Auto) Eos % (Auto) Baso % (Auto) Neut # (Auto) Lymph # (Auto) [place] # (Auto) Eos # (Auto) Baso # (Auto) WBC Differential Diff Scan Differential Comment Platelet Estimate Platelet Morphology RBC Morphology PT INR APTT Sodium Potassium Chloride Carbon Dioxide Anion Gap BUN Creatinine Estimated GFR POC Glucose 121 H Random Glucose Calcium Magnesium Total Bilirubin AST ALT Alkaline Phosphatase Troponin I Total Protein Albumin Urine Color Yellow Urine Clarity Clear Urine pH 5.0 Ur Specific [place] 1.039 H Urine Protein Negative Urine Glucose (UA) 50 Urine Ketones Negative Urine Occult Blood Negative Urine Nitrate Negative Urine Bilirubin Negative Urine Urobilinogen Less than 2 Ur Leukocyte Esterase Negative Urine WBC Less than 1 Micro UA Comment Culture not ind Ur Microscopic Review Not Reportable Urine Culture Comments Culture not ind Urine Opiates Screen Ur Barbiturates Screen Ur Amphetamines Screen U Benzodiazepines Scrn Urine Cocaine Screen U Cannabinoids Screen Serum Alcohol - Imaging Impressions Cervical Spine CT 06/05/18 19:46 CONCLUSION: 1. Scattered degenerative changes. 2. No fracture or canal stenosis. Chest X-Ray 06/05/18 19:46 CONCLUSION: No acute cardiopulmonary process. Head CT 06/05/18 19:46 CONCLUSION: 1. Cortical atrophy. 2. Fluid in the right maxillary sinus. . . Chest CTA 06/05/18 20:49 CONCLUSION: 1. No pulmonary embolus. 2. Thickening of the mid and distal esophagus. This can be directly inspected if clinically needed. Assessment and Plan - Plan 68-year-old male with PMH of DM and HTN presents after a syncopal episode. Syncope, Acute: The patient was sitting down eating dinner yesterday, went to stand up then felt lightheaded and "hot" and then passed out. -C-spine and head CT negative -CXR negative -Chest CTA shows no PE -EKG shows sinus rhythm, no AV blocks, slight QT elongation: 462 -Cardiology consulted and ruled it likely orthostatic hypotension/vasovagal based off low blood pressure and patient report of being dehydrated -Echocardiogram ordered to r/o structural HD -Patient feels much better this morning, has not had s/s Esophageal thickening: Incidental finding on chest CTA , shows thickening of mid and distal esophagus -Patient made aware, reports no GI symptoms -Follow up out patient Diabetes Mellitus 2, Chronic: -Holding home oral anti-hyperglycemics -Monitor glucose, correct with SSI Hypertension, Chronic: -Holding patients lisinopril due to hypotension -Monitor BP, restart anti-hypertensives as needed DVT Prophylaxis: Heparin Note prepared by Joanna BLACKWELL and reviewed by Deepa Garcia PA-C, agrees with above assessment and plan.
[2018-06-06 15:30] VITALS: BP 131/71; TEMP 98.4; O2SAT 98
--- NOTE | 2018-06-06 20:07 | ECHRPT ---
Indication: syncope CONCLUSIONS Normal left ventricular size. Wall thickness is normal. The left ventricular systolic function is normal with an estimated ejection fraction in the range of 55-60%. The left atrial size is mildly dilated. Trace mitral valve regurgitation. The estimated pulmonary arterial pressure is 35 mmHg. There is mild tricuspid valve regurgitation. BP: / HR: Rhythm: MEASUREMENTS (Male / Female) Normal Values Technical Quality: 2D ECHO LV Diastolic Diameter PLAX 4.9 cm 4.2 - 5.9 / 3.9 - 5.3 cm LV Systolic Diameter PLAX 3.7 cm IVS Diastolic Thickness 0.8 cm 0.6 - 1.0 / 0.6 - 0.9 cm LVPW Diastolic Thickness 1.0 cm 0.6 - 1.0 / 0.6 - 0.9 cm LV Relative Wall Thickness 0.4 RV Internal Dim ED PLAX 4.2 cm LVOT Diameter 1.9 cm Aortic Root Diameter 2.8 cm M-MODE Aortic Root Diameter MM 3.2 cm LA Systolic Diameter MM 4.9 cm LA Ao Ratio MM 1.5 AV Cusp Separation MM 1.9 cm DOPPLER AV Peak Velocity 151.0 cm/s AV Peak Gradient 9.1 mmHg LVOT Peak Velocity 102.0 cm/s LVOT Peak Gradient 4.2 mmHg AV Area Cont Eq pk 1.9 cm Mitral E Point Velocity 119.0 cm/s Mitral A Point Velocity 103.0 cm/s Mitral E to A Ratio 1.2 LV E' Lateral Velocity 11.1 cm/s Mitral E to LV E' Lateral Ratio 10.7 LV E' Septal Velocity 7.1 cm/s Mitral E to LV E' Septal Ratio 16.7 TR Peak Velocity 248.0 cm/s TR Peak Gradient 24.6 mmHg Right Atrial Pressure 10.0 mmHg Pulmonary Artery Systolic Pressu 34.6 mmHg Right Ventricular Systolic Press 34.6 mmHg PV Peak Velocity 125.0 cm/s PV Peak Gradient 6.3 mmHg FINDINGS LEFT VENTRICLE Normal left ventricular size. Wall thickness is normal. The left ventricular systolic function is normal with an estimated ejection fraction in the range of 55-60%. RIGHT VENTRICLE Normal right ventricular size and systolic function. LEFT ATRIUM The left atrial size is mildly dilated. RIGHT ATRIUM The right atrial size is normal. ATRIAL SEPTUM Normal atrial septal thickness without atrial level shunting by limited color doppler interrogation. AORTA The aortic root and proximal ascending aorta are normal in size on limited imaging. MITRAL VALVE Trace mitral valve regurgitation. AORTIC VALVE Trileaflet aortic valve. No aortic valve stenosis or regurgitation. TRICUSPID VALVE The estimated pulmonary arterial pressure is 35 mmHg. There is mild tricuspid valve regurgitation. PULMONARY VALVE No pulmonary valve regurgitation or stenosis. VESSELS The inferior vena cava is normal in size. PERICARDIUM No pericardial effusion. Stefano Pitts MD, FACC (Electronically Signed) Final Date:06 June 2018 20:06
[2018-06-06 22:45] VITALS: PULSE 74
--- NOTE | 2018-06-06 22:55 | ECG ---
Date Performed: 06/05/2018 Time Performed: 19:39:37 PTAGE: 68 years EKG: Sinus rhythm PROLONGED QT INTERVAL ABNORMAL ECG INTERPRETATION BASED ON A DEFAULT AGE OF 40 YEARS NO PREVIOUS TRACING DOCTOR: Guido Lomlei Interpretating Date/Time 06/06/2018 22:52:50
== END 2018-06-06 23:02 | disposition home or self-care (01) ==
LOC: NEPD 19:34 → NEDA 19:34 → NEPGCP 06-06 01:40
PROVIDERS: ADMIT Internal Medicine; ATTEND Internal Medicine
DX: D64.9 Anemia, unspecified; I10 Essential (primary) hypertension; Z23 Encounter for immunization; Z79.899 Other long term (current) drug therapy; G31.9 Degenerative disease of nervous system, unspecified; Z79.84 Long term (current) use of oral hypoglycemic drugs; E11.9 Type 2 diabetes mellitus without complications; D69.6 Thrombocytopenia, unspecified; E86.0 Dehydration; E78.5 Hyperlipidemia, unspecified; I95.9 Hypotension, unspecified; R74.0 Nonspecific elevation of levels of transaminase and lactic acid dehydrogenase [LDH]; R55 Syncope and collapse; K44.9 Diaphragmatic hernia without obstruction or gangrene
CPT/HCPCS: 70450; 71010; 71045; 71275; 72125; 80048; 80053; 80307; 81001; 82948; 82962; 83735; 84484; 85025; 85610; 85730; 90471; 90715; 90761; 93005; 93306; 93880; 96361; 96365; 96366; 99285; G0378; J1644; J3475; J7030; Q9967